=== PATIENT | male | born 1950 | race Caucasian/White ===

== ENCOUNTER 2024-11-19 10:56 | Emergency (ER) | payer OTHER ==
[~2024-11-19] VITALS: Ht 180.3 cm; Wt 85.0 kg
[2024-11-19 11:06] VITALS: O2SAT 97
[2024-11-19 11:12] VITALS: BP 131/73; PULSE 63; RESP 17; O2SAT 99
== END 2024-11-19 11:46 | disposition home or self-care (01) ==
LOC: ER 10:56
DX: N20.0 Calculus of kidney (principal); Z87.442 Personal history of urinary calculi
CPT/HCPCS: 99281